=== PATIENT | female | born 1945 | race Caucasian/White ===

== ENCOUNTER → 2016-07-09 | Outpatient (CLI) | payer OTHER ==
--- NOTE | 2016-07-10 06:42 | REP ---
Clinical: Right hip pain. Technique: AP and frog lateral views of the right hip. Findings: Age-related degenerative changes include joint space narrowing as well as subtle cortical irregularity and spurring predominantly involving the greater trochanter. No acute fracture or dislocation. No periarticular calcifications are identified. Surrounding soft tissues are unremarkable. Impression: Mild age-related degenerative changes. Signed by Ronal Choi MD 07/10/2016 06:34 A
== END ==
LOC: M ADAMS 15:56
PROVIDERS: ATTEND Physician Assistant
DX: M16.11 Unilateral primary osteoarthritis, right hip (principal)

== ENCOUNTER → 2016-07-17 | Outpatient (CLI) | payer OTHER ==
--- NOTE | 2016-07-17 20:20 | REP ---
Lumbar spine series: Six views. History: Low back pain. Findings: Lumbar vertebral body heights are preserved. There is advanced diffuse degenerative disc disease with narrowing, endplate sclerosis, anterior and some posterior osteophytic ridging, and vacuum phenomenon at all of the visualized lumbar and lower thoracic disc levels. No fracture or collapse is seen. No spondylolysis or spondylolisthesis is seen. There is osteoarthritic facet narrowing, hypertrophy and sclerosis at L5-S1 and L4-5 bilaterally. This is more prominent on the left. There is a levoconvex mid lumbar scoliosis. Psoas margins are symmetric. Sacrum and SI joints are intact. No bony destructive lesion is seen. Impression: Advanced diffuse degenerative disc disease. Mild levoconvex scoliosis. Osteoarthritic facet changes at L4-5 and L5- S1. Signed by Leo Parekh MD 07/18/2016 09:04 A
== END ==
LOC: M ADAMS 10:21
PROVIDERS: ATTEND Physician Assistant Medical
DX: M51.36 Other intervertebral disc degeneration, lumbar region (principal); M51.37 Other intervertebral disc degeneration, lumbosacral region; M41.9 Scoliosis, unspecified

== ENCOUNTER → 2016-07-18 | Outpatient (REF) | payer OTHER ==
[2016-07-18 12:30] LABS: BASO # 0.1 K/mm3 (0.0-0.2); BASO % 0.7 % (0.0-1.0); EOS # 0.3 K/mm3 (0.0-0.50); EOS % 3.7 % (0.0-3.0); LARGE UNSTAINED CELL # 0.3 K/mm3 (0.0-0.4); LYMPH # 2.8 K/mm3 (1.5-4.5); LYMPH % 32.9 % (24.0-44.0); MEAN CORPUSCULAR HGB CONC 33.6 g/dl (32.0-36.5); MEAN CORPUSCULAR VOLUME 98.4 fl (80.0-96.0); MONO # 0.8 K/mm3 (0.0-0.8); MONO % 9.5 % (0.0-5.0); NEUTROPHILS # 4.2 K/mm3 (1.8-7.7); NEUTROPHILS % 50.3 % (36.0-66.0); PLATELET COUNT, AUTOMATED 508 k/mm3 (150-450); WHITE BLOOD COUNT 8.4 K/mm3 (4.0-10.0)
[2016-07-18 13:06] LABS: ALBUMIN 3.5 GM/DL (3.2-5.2); ALBUMIN/GLOBULIN RATIO 0.92 (1.00-1.93); ALKALINE PHOSPHATASE 83 U/L (45-117); ALT/SGPT 23 U/L (12-78); ANION GAP 8 MEQ/L (8-16); AST/SGOT 17 U/L (15-37); BILIRUBIN,TOTAL 0.7 MG/DL (0.2-1.0); BLOOD UREA NITROGEN 20 MG/DL (7-18); CALCIUM LEVEL 9.6 MG/DL (8.8-10.2); CARBON DIOXIDE LEVEL 29 MEQ/L (21-32); CHLORIDE LEVEL 101 MEQ/L (98-107); CHOLESTEROL LEVEL 150 MG/DL (<200); CREATININE FOR GFR 0.91 MG/DL (0.55-1.02); FREE T4 1.08 NG/DL (0.76-1.46); GLOMERULAR FILTRATION RATE > 60.0 (>39); GLUCOSE, FASTING 98 MG/DL (83-110); SODIUM LEVEL 138 MEQ/L (136-145); TOTAL PROTEIN 7.3 GM/DL (6.4-8.2); TRIGLYCERIDES LEVEL 163 MG/DL (<150)
== END ==
LOC: M SFHCADAM 08:06
PROVIDERS: ATTEND Physician Assistant Medical
DX: I10 Essential (primary) hypertension (principal); E78.5 Hyperlipidemia, unspecified; Z78.0 Asymptomatic menopausal state

== ENCOUNTER → 2016-10-17 | Outpatient (CLI) | payer OTHER ==
--- NOTE | 2016-10-17 09:00 | REPMRS ---
Patient History The patient states she has not had a clinical breast exam in over a year. Patient is postmenopausal. No known family history of cancer. Benign US guided breast biopsy of the right breast, October 04, 2011. Digital Woman Screen Mammo: October 17, 2016 - Exam #: [id number] Bilateral CC and MLO view(s) were taken. Technologist: Leti Garrison, Technologist Prior study comparison: October 12, 2015, digital woman screen mammo performed at [facility]. October 04, 2014, digital woman screen mammo performed at [facility]. FINDINGS: There are scattered fibroglandular densities. There has been no change in the appearance of the mammogram from the prior studies. There is a mild amount of residual fibroglandular tissue which is fairly symmetric. There is no interval development of dominant mass, architectural distortion, or clustered microcalcification suggestive of malignancy. ASSESSMENT: BI-RADS/ACR category 1 mammogram. Negative. Recommendation Routine screening mammogram in 1 year (for women over age 40). This mammogram was interpreted with the aid of an FDA-approved computer-aided dectection system. Electronically Signed By: Preet Nam MD 10/17/16 0974
== END ==
LOC: M WHC 07:51
PROVIDERS: ATTEND Physician Assistant Medical
DX: Z12.31 Encounter for screening mammogram for malignant neoplasm of breast (principal); Z78.0 Asymptomatic menopausal state; Z92.89 Personal history of other medical treatment

== ENCOUNTER → 2017-01-30 | Outpatient (REF) | payer OTHER ==
[2017-01-30 13:18] LABS: MEAN CORPUSCULAR HEMOGLOBIN 32.2 pg (27.0-33.0); MEAN CORPUSCULAR HGB CONC 33.7 g/dl (32.0-36.5); MEAN CORPUSCULAR VOLUME 95.5 fl (80.0-96.0); PLATELET COUNT, AUTOMATED 411 10^3/uL (150-450); RED CELL DISTRIBUTION WIDTH 13.2 % (11.5-14.5); WHITE BLOOD COUNT 7.4 10^3/uL (4.0-10.0)
[2017-02-01 07:16] LABS: ERYTHROCYTE SEDIMENTATION RATE 17 mm/hr (0-30)
[2017-02-06 00:07] LABS: Lyme Disease IgG/IgM Antibodie <0.91 ISR (0.00-0.90); Lyme Disease IgM Ab Quantitati <0.80 index (0.00-0.79); T PALLIDUM AB (FTA-AB) Non Reactive (Non Reactive)
== END ==
LOC: M LAB REF 12:19
PROVIDERS: ATTEND Ophthalmology
DX: M79.2 Neuralgia and neuritis, unspecified (principal)

== ENCOUNTER → 2017-04-18 | Outpatient (CLI) | payer OTHER | LOC: M ADAMS 10:23 | DX: H20.9 Unspecified iridocyclitis (principal) | CPT/HCPCS: 71046 ==

== ENCOUNTER → 2017-10-07 | Outpatient (REF) | payer OTHER ==
[2017-10-07 12:35] LABS: BASO # 0.1 10^3/uL (0.0-0.2); BASO % 1.8 % (0.0-1.0); EOS # 0.4 10^3/uL (0.0-0.50); EOS % 6.4 % (0.0-3.0); HEMATOCRIT 37.7 % (36.0-47.0); IMMATURE GRANULOCYTE % 0.3 % (0-3.0); LYMPH # 2.4 10^3/uL (1.5-4.5); LYMPH % 35.3 % (24.0-44.0); MEAN CORPUSCULAR HEMOGLOBIN 33.6 pg (27.0-33.0); MEAN CORPUSCULAR HGB CONC 34.5 g/dl (32.0-36.5); MEAN CORPUSCULAR VOLUME 97.4 fl (80.0-96.0); MONO # 0.8 10^3/uL (0.0-0.8); MONO % 12.2 % (0.0-5.0); PLATELET COUNT, AUTOMATED 391 10^3/uL (150-450); RED BLOOD COUNT 3.87 10^6/uL (4.00-5.40); RED CELL DISTRIBUTION WIDTH 13.4 % (11.5-14.5); WHITE BLOOD COUNT 6.7 10^3/uL (4.0-10.0)
[2017-10-07 12:47] LABS: TOTAL 25(OH) VITAMIN D 33.9 NG/ML (30.0-100.0)
[2017-10-07 12:53] LABS: ALBUMIN 3.5 GM/DL (3.2-5.2); ALKALINE PHOSPHATASE 52 U/L (45-117); ALT/SGPT 33 U/L (12-78); ANION GAP 8 MEQ/L (8-16); AST/SGOT 23 U/L (7-37); BILIRUBIN,TOTAL 1.1 MG/DL (0.2-1.0); BLOOD UREA NITROGEN 15 MG/DL (7-18); CALCIUM LEVEL 9.4 MG/DL (8.8-10.2); CARBON DIOXIDE LEVEL 28 MEQ/L (21-32); CHLORIDE LEVEL 105 MEQ/L (98-107); CHOLESTEROL LEVEL 149 MG/DL (<200); CHOLESTEROL RISK RATIO 2.223 (<5); GLOMERULAR FILTRATION RATE 57.7 (>39); GLUCOSE, FASTING 93 MG/DL (70-100); HDL CHOLESTEROL 67 MG/DL (>40); LDL CHOLESTEROL 60.8 MG/DL (<100); NON-HDL-C 82 MG/DL; SODIUM LEVEL 141 MEQ/L (136-145); TRIGLYCERIDES LEVEL 106 MG/DL (<150)
== END ==
LOC: M SFHCADAM 08:32
DX: I10 Essential (primary) hypertension (principal); E78.5 Hyperlipidemia, unspecified; Z79.899 Other long term (current) drug therapy
CPT/HCPCS: 84443

== ENCOUNTER → 2017-10-17 | Outpatient (CLI) | payer OTHER | LOC: M WHC 09:32 | DX: Z12.31 Encounter for screening mammogram for malignant neoplasm of breast (principal); Z92.0 Personal history of contraception; Z00.00 Encounter for general adult medical examination without abnormal findings; I10 Essential (primary) hypertension; E78.5 Hyperlipidemia, unspecified; J30.9 Allergic rhinitis, unspecified; I77.9 Disorder of arteries and arterioles, unspecified; M51.36 Other intervertebral disc degeneration, lumbar region | CPT/HCPCS: 77067 ==

== ENCOUNTER → 2018-10-01 | Outpatient (REF) | payer OTHER ==
[2018-10-01 12:54] LABS: BASO # 0.1 10^3/uL (0.0-0.2); BASO % 1.3 % (0.0-1.0); EOS # 0.3 10^3/uL (0.0-0.50); EOS % 3.3 % (0.0-3.0); HEMATOCRIT 40.1 % (36.0-47.0); HEMOGLOBIN 13.5 g/dl (12.0-15.5); LYMPH # 2.7 10^3/uL (1.5-4.5); LYMPH % 33.8 % (24.0-44.0); MEAN CORPUSCULAR HEMOGLOBIN 32.6 pg (27.0-33.0); MEAN CORPUSCULAR HGB CONC 33.7 g/dl (32.0-36.5); MEAN CORPUSCULAR VOLUME 96.9 fl (80.0-96.0); NEUTROPHILS # 3.9 10^3/uL (1.8-7.7); NEUTROPHILS % 48.2 % (36.0-66.0); PLATELET COUNT, AUTOMATED 431 10^3/uL (150-450); RED BLOOD COUNT 4.14 10^6/uL (4.00-5.40)
[2018-10-01 13:05] LABS: ALBUMIN 3.7 GM/DL (3.2-5.2); BILIRUBIN,TOTAL 1.1 MG/DL (0.2-1.0); CHOLESTEROL RISK RATIO 2.263 (<5); CREATININE FOR GFR 1.08 MG/DL (0.55-1.30); GLOMERULAR FILTRATION RATE 52.7 (>39); POTASSIUM SERUM 4.9 MEQ/L (3.5-5.1); THYROID STIMULATING HORMONE 4.53 uIU/ML (0.358-3.740); TOTAL 25(OH) VITAMIN D 32.4 NG/ML (30.0-100.0); TOTAL PROTEIN 7.3 GM/DL (6.4-8.2)
== END ==
LOC: M SFHCADAM 08:17
PROVIDERS: ATTEND Physician Assistant Medical
DX: Z00.00 Encounter for general adult medical examination without abnormal findings (principal); I10 Essential (primary) hypertension; E78.5 Hyperlipidemia, unspecified; I77.9 Disorder of arteries and arterioles, unspecified

== ENCOUNTER → 2018-11-11 | Outpatient (REF) | payer OTHER | LOC: M SFHCADAM 09:20 | PROVIDERS: ATTEND Physician Assistant Medical | DX: E03.9 Hypothyroidism, unspecified (principal) ==

== ENCOUNTER → 2018-11-25 | Outpatient (CLI) | payer MEDICARE ==
--- NOTE | 2018-11-25 23:29 | REPMRS ---
Patient History The patient states she has not had a clinical breast exam in over a year. Patient is postmenopausal. No known family history of cancer. Benign US guided breast biopsy of the right breast, October 04, 2011. No Hormone Replacement Therapy 3D TOMOSYNTHESIS WAS PERFORMED. The [facility] lifetime risk for breast cancer is 3.3%. Digital Woman Screen Mammo: November 25, 2018 - Exam #: [id number] Bilateral CC and MLO view(s) were taken. Technologist: Tanisha Quintanilla, Technologist Prior study comparison: October 17, 2017, bilateral digital woman screen mammo performed at [facility]. October 17, 2016, digital woman screen mammo performed at [facility]. FINDINGS: There are scattered fibroglandular densities. There has been no change in the appearance of the mammogram from the prior studies. There is a mild amount of residual fibroglandular tissue which is fairly symmetric. There is no interval development of dominant mass, architectural distortion, or clustered microcalcification suggestive of malignancy. Assessment: BI-RADS/ACR category 1 mammogram. Negative Mammogram. Recommendation Routine screening mammogram in 1 year (for women over age 40). This mammogram was interpreted with the aid of an FDA-approved computer-aided dectection system. Electronically Signed By: Preet Nam MD 11/25/18 1024
== END ==
LOC: M WHC 09:40
PROVIDERS: ATTEND Physician Assistant Medical
DX: Z12.31 Encounter for screening mammogram for malignant neoplasm of breast (principal); Z78.0 Asymptomatic menopausal state; Z86.018 Personal history of other benign neoplasm
CPT/HCPCS: 77063; 77067; G0463

== ENCOUNTER → 2019-05-04 | Outpatient (REF) | payer MEDICARE, OTHER | LOC: M SFHCADAM 15:46 | PROVIDERS: ATTEND Physician Assistant Medical | DX: E03.9 Hypothyroidism, unspecified (principal) ==

== ENCOUNTER → 2019-11-03 | Outpatient (REF) | payer MEDICARE, OTHER ==
[2019-11-03 16:28] LABS: BASO # 0.1 10^3/uL (0.0-0.2); BASO % 1.1 % (0.0-1.0); EOS # 0.2 10^3/uL (0.0-0.5); EOS % 2.4 % (0.0-3.0); HEMATOCRIT 37.1 % (36.0-47.0); HEMOGLOBIN 12.5 g/dl (12.0-15.5); LYMPH % 33.1 % (24.0-44.0); MEAN CORPUSCULAR HEMOGLOBIN 35.3 pg (27.0-33.0); MEAN CORPUSCULAR HGB CONC 33.7 g/dl (32.0-36.5); MEAN CORPUSCULAR VOLUME 104.8 fl (80.0-96.0); MONO % 11.5 % (0.0-5.0); NEUTROPHILS # 4.6 10^3/uL (1.5-8.5); NEUTROPHILS % 51.7 % (36.0-66.0); PLATELET COUNT, AUTOMATED 532 10^3/uL (150-450); RED BLOOD COUNT 3.54 10^6/uL (4.00-5.40); WHITE BLOOD COUNT 8.9 10^3/uL (4.0-10.0)
[2019-11-03 16:42] LABS: ALBUMIN 3.7 GM/DL (3.2-5.2); BILIRUBIN,TOTAL 0.9 MG/DL (0.2-1.0); CALCIUM LEVEL 10.1 MG/DL (8.8-10.2); CHOLESTEROL RISK RATIO 2.47 (<5); CREATININE FOR GFR 1.05 MG/DL (0.55-1.30); GLOMERULAR FILTRATION RATE 54.2 (>39); POTASSIUM SERUM 5.5 MEQ/L (3.5-5.1); THYROID STIMULATING HORMONE 1.77 uIU/ML (0.358-3.740); TOTAL PROTEIN 7.4 GM/DL (6.4-8.2)
== END ==
LOC: M LABDRWAD 10:08
PROVIDERS: ATTEND Physician Assistant Medical
DX: E78.5 Hyperlipidemia, unspecified (principal); I10 Essential (primary) hypertension; E03.9 Hypothyroidism, unspecified

== ENCOUNTER → 2019-11-12 | Outpatient (REF) | payer MEDICARE, OTHER ==
[2019-11-12 15:46] LABS: CALCIUM LEVEL 10.2 MG/DL (8.8-10.2); CREATININE FOR GFR 1.14 MG/DL (0.55-1.30); GLOMERULAR FILTRATION RATE 49.3 (>39)
== END ==
LOC: M LABDRWAD 09:35
PROVIDERS: ATTEND Physician Assistant Medical
DX: E87.5 Hyperkalemia (principal)

== ENCOUNTER → 2020-08-15 | Outpatient (CLI) | payer OTHER, MEDICARE ==
--- NOTE | 2020-08-16 07:29 | REP ---
INDICATION: ACUTE MIDLINE THORACIC BACK PAIN COMPARISON: None. TECHNIQUE: AP, lateral, and swimmers views. FINDINGS: Alignment and kyphosis maintained. Age-related osteopenia and moderate/early advanced multilevel degenerative changes include endplate sclerosis, disc space narrowing/obliteration, and osteophytosis. No acute fracture/compression injury or subluxation. IMPRESSION: Moderate/early advanced multilevel degenerative changes. <Electronically signed by Ronal Choi > 08/16/20 [id number]
== END ==
LOC: M ADAMS 11:29
PROVIDERS: ATTEND Physician Assistant Medical
DX: M54.6 Pain in thoracic spine (principal)

== ENCOUNTER 2020-09-07 20:03 | Emergency (ER) | payer MEDICARE ==
[~2020-09-07] VITALS: Ht 162.6 cm; Wt 69.1 kg
[2020-09-07] MEDS ORDERED: ISOVUE-370 76% 100ML VIAL As Ordered ONE (20:52)
[2020-09-07 20:59] LABS: BASO # 0.1 10^3/uL (0.0-0.2); BASO % 1.3 % (0.0-1.0); EOS # 0.2 10^3/uL (0.0-0.5); EOS % 1.8 % (0.0-3.0); HEMOGLOBIN 11.4 g/dl (12.0-15.5); LYMPH # 1.3 10^3/uL (1.5-5.0); LYMPH % 14.3 % (24.0-44.0); MEAN CORPUSCULAR HEMOGLOBIN 33.6 pg (27.0-33.0); MEAN CORPUSCULAR HGB CONC 33.5 g/dl (32.0-36.5); MEAN CORPUSCULAR VOLUME 100.3 fl (80.0-96.0); MONO # 1.2 10^3/uL (0.0-0.8); MONO % 13.1 % (2.0-8.0); NEUTROPHILS # 6.5 10^3/uL (1.5-8.5); NEUTROPHILS % 69.1 % (36.0-66.0); PLATELET COUNT, AUTOMATED 491 10^3/uL (150-450); RED BLOOD COUNT 3.39 10^6/uL (4.00-5.40); WHITE BLOOD COUNT 9.3 10^3/uL (4.0-10.0)
[2020-09-07] MEDS ORDERED: NS 1,000 ML IV ONE (21:00)
[2020-09-07 21:09] LABS: INR 0.92; PROTHROMBIN TIME 12.6 SECONDS (12.5-14.3)
[2020-09-07 21:35] LABS: ALT/SGPT 33 U/L (12-78); BILIRUBIN,DIRECT 0.2 MG/DL (0.0-0.2); BILIRUBIN,TOTAL 0.5 MG/DL (0.2-1.0); BLOOD UREA NITROGEN 18 MG/DL (7-18); CALCIUM LEVEL 9.4 MG/DL (8.8-10.2); CARBON DIOXIDE LEVEL 27 MEQ/L (21-32); CHLORIDE LEVEL 98 MEQ/L (98-107); CK-MB VALUE MASS < 1.0 NG/ML (<3.6); CPK CREATINE PHOSPHOKINASE 46 U/L (26-192); CREATININE FOR GFR 1.27 MG/DL (0.55-1.30); GLOMERULAR FILTRATION RATE 43.4 (>39); GLUCOSE, FASTING 135 MG/DL (70-100); LIPASE 174 U/L (73-393); MB/CK RELATIVE INDEX 2.17 (< OR =4); POTASSIUM SERUM 4.1 MEQ/L (3.5-5.1); SODIUM LEVEL 131 MEQ/L (136-145); TOTAL PROTEIN 7.9 GM/DL (6.4-8.2); TROPONIN I < 0.02 NG/ML (< 0.10)
--- NOTE | 2020-09-07 21:47 | REPVR ---
PROCEDURE INFORMATION: Exam: CTA Chest With Contrast Exam date and time: 09/07/2020 9:00 PM Age: 75 years old Clinical indication: Chest wall pain; Additional info: Chest wall pain, tachycardia, ddimer TECHNIQUE: Imaging protocol: Computed tomographic angiography of the chest with contrast. 3D rendering (Not supervised by radiologist): MIP and/or 3D reconstructed images were created by the technologist. Radiation optimization: All CT scans at this facility use at least one of these dose optimization techniques: automated exposure control; mA and/or kV adjustment per patient size (includes targeted exams where dose is matched to clinical indication); or iterative reconstruction. Contrast material: ISOVUE 370; Contrast volume: 75 ml; Contrast route: INTRAVENOUS (IV); COMPARISON: DX CHEST 2 VIEW 09/07/2020 3:00 PM FINDINGS: Pulmonary arteries: There are no pulmonary emboli. There is enlargement of the central pulmonary arteries, findings which can be associated with pulmonary arterial hypertension which should be correlated clinically. Aorta: There is mild atherosclerosis in the thoracic aorta. There is no aortic dissection or aneurysm. Great vessels off aortic arch: Mild atherosclerotic changes at the origin of the left subclavian artery without significant stenosis. Other arteries: Mild atherosclerotic changes in the right brachiocephalic artery without significant stenosis. Lungs: Bibasilar atelectasis. Lungs otherwise clear. Pleural spaces: Unremarkable. No pneumothorax. No pleural effusion. Heart: Unremarkable. No cardiomegaly. No pericardial effusion. Mediastinal space: A moderate hiatal hernia is present. Lymph nodes: Small mediastinal lymph nodes likely postinflammatory. Bones/joints: The spine demonstrates mild degenerative changes. Degenerative changes in the left glenohumeral joint. Soft tissues: Unremarkable. IMPRESSION: 1. A moderate hiatal hernia is present. 2. There is no aortic dissection or aneurysm. 3. There are no pulmonary emboli. 4. There is enlargement of the central pulmonary arteries, findings which can be associated with pulmonary arterial hypertension which should be correlated clinically. 5. No acute pulmonary parenchymal abnormalities. Electronically signed by: Clarence Barrera On 09/07/2020 21:47:38 PM
--- NOTE | 2020-09-07 23:03 | REPVR ---
PROCEDURE INFORMATION: Exam: US Duplex Lower Extremity Veins, Bilateral Exam date and time: 09/07/2020 10:03 PM Age: 75 years old Clinical indication: Pain; Leg, lower; Bilateral; Additional info: Chest pain/sob, tachycardia, ddimer TECHNIQUE: Imaging protocol: Real-time duplex ultrasound of the extremities with 2-D begum scale, color Doppler flow and spectral waveform analysis with image documentation. Complete exam focused on the bilateral lower extremity veins. COMPARISON: No relevant prior studies available. FINDINGS: Right deep veins: Common femoral, femoral, proximal profunda femoral and popliteal veins are patent without thrombus. Normal Doppler waveforms. Normal compressibility and/or augmentation response. Right superficial veins: Saphenofemoral junction is patent without thrombus. Left deep veins: Common femoral, femoral, proximal profunda femoral and popliteal veins are patent without thrombus. Normal Doppler waveforms. Normal compressibility and/or augmentation response. Left superficial veins: Saphenofemoral junction is patent without thrombus. Soft tissues: No abnormal focal fluid collection. IMPRESSION: No evidence of deep vein thrombosis. Electronically signed by: Hill Alejandra On 09/07/2020 23:03:07 PM
[2020-09-07] MEDS ORDERED: amLODIPine 5 MG TAB PO ONE (23:25)
[2020-09-07] MEDS ORDERED: LABETALOL 100MG TAB PO ONE (23:30)
[2020-09-07] MEDS ORDERED: LEVO25TA5 (23:57)
[2020-09-07] MEDS ORDERED: MELO15TA28 (23:57)
[2020-09-07] MEDS ORDERED: REST0.05 (23:57)
[2020-09-07] MEDS ORDERED: ATOR40TA75 (23:57)
[2020-09-07] MEDS ORDERED: PREDOPD (23:57)
[2020-09-07] MEDS ORDERED: OLOP2.5D7 (23:57)
[2020-09-07] MEDS ORDERED: FLUTISP (23:57)
[2020-09-07] MEDS ORDERED: LISI20TA33 (23:57)
[2020-09-07] MEDS ORDERED: VALA1TAB5 (23:57)
[2020-09-07] MEDS ORDERED: OMEP-221 (23:57)
[2020-09-07 23:58] VITALS: BP 154/74
--- NOTE | 2020-09-09 08:19 | ED PDOC ---
Post-Departure Follow-Up radiology repo rtfaxed to lon chris Sarah MD Sep 09, 2020 08:19
--- NOTE | 2020-09-09 16:11 | ECGEPIP ---
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
[2020-09-27] MEDS ORDERED: SUPE600T4 PO (13:20)
[2020-09-27] MEDS ORDERED: NOXI1TAB PO (13:20)
[2020-09-27] MEDS ORDERED: [UNRECOGNIZED DRUG - CODE] PO (13:20)
[2020-09-27] MEDS ORDERED: TURM500C PO (13:20)
[2020-09-27] MEDS ORDERED: ASPI1CHW3 PO (13:20)
[2020-09-27] MEDS ORDERED: COVI100V IM (13:20)
[2020-09-27] MEDS ORDERED: VITA-259 PO (13:20)
== END 2020-09-08 00:22 | disposition home or self-care (01) ==
LOC: M ED 20:03
DX: I10 Essential (primary) hypertension (principal); E78.5 Hyperlipidemia, unspecified; Z79.899 Other long term (current) drug therapy; Z79.890 Hormone replacement therapy
CPT/HCPCS: 71046; 71275; 80053; 80061; 82550; 82553; 82607; 82728; 82746; 83550; 83690; 83883; 84439; 84443; 84484; 85025; 85379; 85610; 85652; 85730; 86140; 93005; 93041; 93970; 94760; 96360; 96361; 99284; G0463; Q9967

== ENCOUNTER → 2020-09-07 | Outpatient (CLI) | payer MEDICARE ==
[~2020-09-07] MED LIST: ATOR40TA75; FLUTISP; LEVO25TA5; LISI20TA33; MELO15TA28; OLOP2.5D7; OMEP-221; PREDOPD; REST0.05; VALA1TAB5
--- NOTE | 2020-09-07 15:40 | REP ---
INDICATION: PLEURITIC CHEST PAIN COMPARISON: 04/18/2017 TECHNIQUE: PA and lateral. FINDINGS: The cardiac silhouette is normal. The bilateral komal are within normal limits. Hiatal hernia is suspected. The lung servin demonstrate bibasilar platelike atelectasis. No effusion or pneumothorax. Skeletal structures demonstrate degenerative changes to the thoracic spine and old healed right clavicle fracture. IMPRESSION: Mild to moderate bibasilar platelike atelectasis. <Electronically signed by Ronal Choi > 09/07/20 1532
== END ==
LOC: M ADAMS 15:17
PROVIDERS: ATTEND Physician Assistant
DX: J98.11 Atelectasis (principal); R07.81 Pleurodynia

== ENCOUNTER → 2020-09-07 | Outpatient (REF) | payer MEDICARE ==
[2020-09-07 16:49] LABS: BASO # 0.1 10^3/uL (0.0-0.2); EOS # 0.2 10^3/uL (0.0-0.5); EOS % 2.4 % (0.0-3.0); HEMATOCRIT 35.9 % (36.0-47.0); HEMOGLOBIN 11.8 g/dl (12.0-15.5); LYMPH # 2.1 10^3/uL (1.5-5.0); LYMPH % 20.6 % (24.0-44.0); MEAN CORPUSCULAR HEMOGLOBIN 33.1 pg (27.0-33.0); MEAN CORPUSCULAR HGB CONC 32.9 g/dl (32.0-36.5); MEAN CORPUSCULAR VOLUME 100.8 fl (80.0-96.0); MONO # 1.4 10^3/uL (0.0-0.8); MONO % 13.3 % (2.0-8.0); NEUTROPHILS # 6.3 10^3/uL (1.5-8.5); NEUTROPHILS % 62.3 % (36.0-66.0); PLATELET COUNT, AUTOMATED 517 10^3/uL (150-450); RED BLOOD COUNT 3.56 10^6/uL (4.00-5.40); WHITE BLOOD COUNT 10.1 10^3/uL (4.0-10.0)
[2020-09-07 17:25] LABS: ALBUMIN 2.9 GM/DL (3.2-5.2); ALT/SGPT 35 U/L (12-78); BILIRUBIN,TOTAL 0.6 MG/DL (0.2-1.0); BLOOD UREA NITROGEN 19 MG/DL (7-18); C REACTIVE PROTEIN QUANTITATIV 6.58 MG/DL (0.00-0.30); CARBON DIOXIDE LEVEL 26 MEQ/L (21-32); CHLORIDE LEVEL 99 MEQ/L (98-107); CHOLESTEROL LEVEL 168 MG/DL (<200); CHOLESTEROL RISK RATIO 2.301 (<5); CREATININE FOR GFR 1.28 MG/DL (0.55-1.30); ERYTHROCYTE SEDIMENTATION RATE 103 mm/hr (0-30); FERRITIN 315 NG/ML (8-252); FOLATE > 24.0 NG/ML; FREE T4 1.29 NG/DL (0.76-1.46); GLUCOSE, FASTING 92 MG/DL (70-100); HDL CHOLESTEROL 73 MG/DL (>40); IRON (FE) 34 UG/DL (50-170); LDL CHOLESTEROL 71 MG/DL (<100); NON-HDL-C 95 MG/DL; PERCENT SATURATION 13.2 % (13.2-45.0); POTASSIUM SERUM 5.7 MEQ/L (3.5-5.1); SODIUM LEVEL 134 MEQ/L (136-145); TOTAL IRON BINDING CAPACITY 257 UG/DL (250-450); TOTAL PROTEIN 8.1 GM/DL (6.4-8.2); TRIGLYCERIDES LEVEL 122 MG/DL (<150); VITAMIN B12 LEVEL > 2000 PG/ML
[2020-09-09 17:08] LABS: FREE KAPPA LIGHT CHAINS SERUM 62.2 mg/L (3.3-19.4); FREE LAMBDA LIGHT CHAINS SERUM 62.6 mg/L (5.7-26.3); KAPPA/LAMBDA RATIO SERUM 0.99 (0.26-1.65)
== END ==
LOC: M SFHCADAM 15:13
PROVIDERS: ATTEND Physician Assistant
DX: R53.82 Chronic fatigue, unspecified (principal); D75.89 Other specified diseases of blood and blood-forming organs; E03.9 Hypothyroidism, unspecified; E78.5 Hyperlipidemia, unspecified; R63.4 Abnormal weight loss; R07.81 Pleurodynia

== ENCOUNTER → 2020-09-12 | Outpatient (REF) | payer MEDICARE ==
[2020-09-12 17:22] LABS: HEMATOCRIT 34.6 % (36.0-47.0); HEMOGLOBIN 11.3 g/dl (12.0-15.5); MEAN CORPUSCULAR HEMOGLOBIN 33.7 pg (27.0-33.0); MEAN CORPUSCULAR HGB CONC 32.7 g/dl (32.0-36.5); MEAN CORPUSCULAR VOLUME 103.3 fl (80.0-96.0); PLATELET COUNT, AUTOMATED 562 10^3/uL (150-450); RED BLOOD COUNT 3.35 10^6/uL (4.00-5.40); WHITE BLOOD COUNT 10.3 10^3/uL (4.0-10.0)
[2020-09-12 17:43] LABS: C REACTIVE PROTEIN QUANTITATIV 0.77 MG/DL (0.00-0.30); TOTAL PROTEIN 7.6 GM/DL (6.4-8.2)
[2020-09-12 17:51] LABS: ERYTHROCYTE SEDIMENTATION RATE 105 mm/hr (0-30)
[2020-09-13 14:20] LABS: ALBUMIN 3.34 GM/DL (3.29-5.55); ALPHA-1-GLOBULIN % 5.3 % (2.9-4.9); ALPHA-2-GLOBULINS 1.31 GM/DL (0.42-0.99); ALPHA-2-GLOBULINS % 17.3 % (7.1-11.8); BETA-1-GLOBULINS 0.43 GM/DL (0.28-0.60); BETA-1-GLOBULINS % 5.6 % (4.7-7.2); BETA-2-GLOBULINS 0.45 GM/DL (0.19-0.55); BETA-2-GLOBULINS % 5.9 % (3.2-6.5); GAMMA GLOBULIN % 21.9 % (11.1-18.8); GAMMA GLOBULINS 1.66 GM/DL (0.65-1.58)
[2020-09-14 17:09] LABS: FREE KAPPA LIGHT CHAINS SERUM 45.4 mg/L (3.3-19.4); FREE LAMBDA LIGHT CHAINS SERUM 52.6 mg/L (5.7-26.3); KAPPA/LAMBDA RATIO SERUM 0.86 (0.26-1.65)
== END ==
LOC: M SFHCADAM 14:13
PROVIDERS: ATTEND Physician Assistant
DX: R70.0 Elevated erythrocyte sedimentation rate (principal); D53.9 Nutritional anemia, unspecified

== ENCOUNTER → 2020-10-12 | Outpatient (CLI) | payer MEDICARE ==
[~2020-10-12] MED LIST changes: +ASPI1CHW3 PO; +COVI100V IM; +NOXI1TAB PO; +SUPE600T4 PO; +TURM500C PO; +VITA-259 PO; +[UNRECOGNIZED DRUG - CODE] PO
--- NOTE | 2020-10-12 10:47 | REP ---
INDICATION: Carotid artery disease TECHNIQUE: Carotid ultrasonography was performed bilaterally FINDINGS: Right: CCA systolic: 124 centimeters/second CCA diastolic: 18.0 centimeters/second ICA systolic: 106.0 centimeters/second ICA diastolic: 28.0 centimeters/second ICA CCA ratio: 0.85 Left: CCA systolic: 109 centimeters/second CCA diastolic: 20.1 centimeters/second ICA systolic: 92.1 centimeters/second ICA diastolic: 22.0 centimeters/second ICA CCA ratio: 0.84 Vertebral artery: Right: Antegrade flow left: Antegrade flow A moderate amount of echogenic material seen along the carotid arterial floyd some of which casts and acoustic shadow. IMPRESSION: According to the SRU criteria there is less than 50% stenosis of the internal carotid artery bilaterally. This is secondary to both calcified and noncalcified are thrombus plaque formation. When scanning the carotid arteries the technologist noted multiple thyroid nodules. Consider follow-up with thyroid ultrasonography. <Electronically signed by Collins Garcia > 10/12/20 [id number]
== END ==
LOC: M RAD 09:58
PROVIDERS: ATTEND Physician Assistant Medical
DX: I77.9 Disorder of arteries and arterioles, unspecified (principal); E04.1 Nontoxic single thyroid nodule; R09.89 Other specified symptoms and signs involving the circulatory and respiratory systems

== ENCOUNTER → 2020-11-01 | Outpatient (CLI) | payer MEDICARE ==
--- NOTE | 2020-11-01 13:51 | REPMRS ---
Patient History The patient states she has not had a clinical breast exam in over a year. No known family history of cancer. Benign US guided breast biopsy of the right breast, October 04, 2011. No Hormone Replacement Therapy Patient states no breast complaints today. Patient has signed MRS History Sheet. Digital Woman Screen Mammo: November 01, 2020 - Exam #: [id number] Bilateral CC and MLO view(s) were taken. Technologist: Leti Garrison, Technologist Prior study comparison: November 25, 2018, bilateral digital woman screen mammo performed at [facility]. October 17, 2017, bilateral digital woman screen mammo performed at [facility]. October 17, 2016, digital woman screen mammo performed at [facility]. FINDINGS: There are scattered fibroglandular densities. The Volpara volumetric breast density category is:B. There is a needle biopsy marker clip noted in the right breast. There has been no change in the appearance of the mammogram from the prior studies. There is a mild amount of scattered fibroglandular density which is fairly symmetric. There is no interval development of dominant mass, architectural distortion, or grouped microcalcification suggestive of malignancy. 3-D tomosynthesis shows no additional findings. Assessment: BI-RADS/ACR category 2 mammogram. Benign Findings. Recommendation Routine screening mammogram of both breasts in 1 year (for women over age 40). This patient's [facility] Lifetime Breast Cancer Risk is estimated at 2.7 %. This mammogram was interpreted with the aid of an FDA-approved computer-aided dectection system. Electronically Signed By: Abdirahman Parekh MD 11/01/20 0515
--- NOTE | 2020-11-01 13:52 | DEXAMM ---
INDICATION: Z78.0/MENOPAUSAL. COMPARISON: Comparison study October 12, 2015. TECHNIQUE: Bone density was measured using dual-energy x-ray absorptionmetry (DEXA). FINDINGS: AP SPINE L1-L4 BMD 1.567 g/cm2 Young Adult T-Score 3.0 Age Matched Z-Score 4.8. LT FEMUR, TOTAL BMD 0.718 g/cm2 Young Adult T-Score -2.3 Age Matched Z-Score 8-0.4. LT NECK BMD 0.662 g/cm2 Young Adult T-Score -2.7 Age Matched Z-Score -0.7. RT FEMUR, TOTAL BMD 0.663 g/cm2 Young Adult T-Score -2.7 Age Matched Z-Score -0.9. RT NECK BMD 0.683 g/cm2 Young Adult T-Score -2.6 Age Matched Z-Score -0.5. IMPRESSION: There is normal bone density of the spine. There is osteoporosis of the left hip. There is is osteoporosis of the right hip. The density of the spine has increased 5.1% since the initial exam on August 22, 2011. The density of the spine increased 1.8% since most recent exam on October 12, 2015. The density of the left hip has decreased 7.7% since initial exam on August 22, 2011. The density of the left hip has decreased 8.4% since most recent exam on October 12, 2015. The density of the right hip has decreased 13.1% since the initial exam on the August 21, 2001 a. The density of the right hip has decreased 14.3% since the most recent exam on October 12, 2015. FOLLOW-UP: Recommendation for the next bone density exam: 2 years. <Electronically signed by Abdirahman Parekh > 11/01/20 9167
== END ==
LOC: M WHC 12:47
PROVIDERS: ATTEND Physician Assistant Medical
DX: Z12.31 Encounter for screening mammogram for malignant neoplasm of breast (principal); Z78.0 Asymptomatic menopausal state; Z86.018 Personal history of other benign neoplasm

== ENCOUNTER → 2020-11-03 | Outpatient (CLI) | payer MEDICARE ==
--- NOTE | 2020-11-04 06:41 | REP ---
INDICATION: THYROID NODULES COMPARISON: None. TECHNIQUE: Nam scale and color evaluation of the thyroid gland using the linear high frequency transducer. FINDINGS: The thyroid gland is normal in contour, shape, size, and overall parenchymal echogenicity. Right thyroid lobe measures 3.9 x 1.4 x 1.7 cm without nodule or cyst. Isthmus measures 1.7 mm in width. Left thyroid lobe measures 3.4 x 1.5 x 1.6 cm with 4 x 2 x 3 mm midpole complex cyst, 10 x 6 x 6 mm simple cyst and 3 x 2 x 3 mm lower pole hypoechoic nodule. IMPRESSION: Left-sided nodules/cysts relatively nonspecific. No single lesion meets TI-RADS criteria for biopsy. Consider annual follow-up if necessary. <Electronically signed by Ronal Choi > 11/04/20 0637
== END ==
LOC: M RAD 13:46
PROVIDERS: ATTEND Physician Assistant Medical
DX: E04.1 Nontoxic single thyroid nodule (principal)

== ENCOUNTER → 2020-11-15 | Outpatient (REF) | payer MEDICARE ==
[~2020-11-15] MED LIST changes: +FOSA70TA PO; +VITA-297 PO
[2020-11-15 18:26] LABS: BASO # 0.1 10^3/uL (0.0-0.2); BASO % 1.4 % (0.0-1.0); EOS # 0.3 10^3/uL (0.0-0.5); EOS % 3.4 % (0.0-3.0); HEMATOCRIT 35.4 % (36.0-47.0); HEMOGLOBIN 11.5 g/dl (12.0-15.5); LYMPH % 30.9 % (24.0-44.0); MEAN CORPUSCULAR HGB CONC 32.5 g/dl (32.0-36.5); MEAN CORPUSCULAR VOLUME 101.4 fl (80.0-96.0); MONO # 1.2 10^3/uL (0.0-0.8); MONO % 12.2 % (2.0-8.0); NEUTROPHILS % 51.5 % (36.0-66.0); PLATELET COUNT, AUTOMATED 607 10^3/uL (150-450); RED BLOOD COUNT 3.49 10^6/uL (4.00-5.40); WHITE BLOOD COUNT 9.7 10^3/uL (4.0-10.0)
[2020-11-15 19:19] LABS: TOTAL PROTEIN 7.2 GM/DL (6.4-8.2)
[2020-11-15 19:27] LABS: VITAMIN B12 LEVEL 1548 PG/ML
[2020-11-15 19:28] LABS: FOLATE > 24.0 NG/ML
[2020-11-16 11:26] LABS: ALBUMIN 3.74 GM/DL (3.29-5.55); ALPHA-1-GLOBULIN % 4.1 % (2.9-4.9); ALPHA-2-GLOBULINS 1.05 GM/DL (0.42-0.99); ALPHA-2-GLOBULINS % 14.6 % (7.1-11.8); BETA-1-GLOBULINS 0.43 GM/DL (0.28-0.60); BETA-2-GLOBULINS 0.33 GM/DL (0.19-0.55); BETA-2-GLOBULINS % 4.6 % (3.2-6.5); GAMMA GLOBULIN % 18.7 % (11.1-18.8); GAMMA GLOBULINS 1.35 GM/DL (0.65-1.58)
[2020-11-17 19:49] LABS: FREE KAPPA LIGHT CHAINS SERUM 29.5 mg/L (3.3-19.4); FREE LAMBDA LIGHT CHAINS SERUM 47.5 mg/L (5.7-26.3); KAPPA/LAMBDA RATIO SERUM 0.62 (0.26-1.65)
== END ==
LOC: M LABDRWAD 17:57
PROVIDERS: ATTEND Internal Medicine
DX: D75.89 Other specified diseases of blood and blood-forming organs (principal)

== ENCOUNTER 2020-12-12 08:57 | Emergency (ER) | payer MEDICARE ==
[~2020-12-12 08:57] MED LIST changes: -AMLO10TA PO; -SULF1TAB23 PO
[2020-12-12 10:34] LABS: BASO # 0.1 10^3/uL (0.0-0.2); EOS # 0.2 10^3/uL (0.0-0.5); EOS % 2.4 % (0.0-3.0); HEMATOCRIT 37.7 % (36.0-47.0); HEMOGLOBIN 12.6 g/dl (12.0-15.5); LYMPH # 1.2 10^3/uL (1.5-5.0); LYMPH % 15.5 % (24.0-44.0); MEAN CORPUSCULAR HEMOGLOBIN 33.5 pg (27.0-33.0); MEAN CORPUSCULAR HGB CONC 33.4 g/dl (32.0-36.5); MEAN CORPUSCULAR VOLUME 100.3 fl (80.0-96.0); MONO # 1.2 10^3/uL (0.0-0.8); MONO % 15.7 % (2.0-8.0); NEUTROPHILS % 65.1 % (36.0-66.0); PLATELET COUNT, AUTOMATED 439 10^3/uL (150-450); RED BLOOD COUNT 3.76 10^6/uL (4.00-5.40); WHITE BLOOD COUNT 7.6 10^3/uL (4.0-10.0)
[2020-12-12 10:49] LABS: CALCIUM LEVEL 9.7 MG/DL (8.8-10.2); CREATININE FOR GFR 1.12 MG/DL (0.55-1.30); GLOMERULAR FILTRATION RATE 50.2 (>39); POTASSIUM SERUM 4.4 MEQ/L (3.5-5.1)
[2020-12-12] MEDS ORDERED: LABETALOL 100MG/20ML VIAL IV STA ×2 (11:40→13:16)
[2020-12-12] MEDS ORDERED: LORazepam 2 MG/ML VIAL IV STA (12:41)
[2020-12-12 13:41] VITALS: BP 216/98
[2020-12-12] MEDS ORDERED: BACTRIM 160MG/800MG DS TAB PO ONE (14:00)
[2020-12-12] MEDS ORDERED: NS 500 ML IV ONE (14:10)
[2020-12-12 15:15] VITALS: BP 155/73
[2020-12-12] MEDS ORDERED: SULF1TAB23 PO (15:16)
[2020-12-12] MEDS ORDERED: AMLO10TA PO (15:17)
--- NOTE | 2020-12-12 19:20 | ECGEPIP ---
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
== END 2020-12-12 15:40 | disposition home or self-care (01) ==
LOC: M ED 08:57
DX: I10 Essential (primary) hypertension (principal); N39.0 Urinary tract infection, site not specified; E78.9 Disorder of lipoprotein metabolism, unspecified; E07.9 Disorder of thyroid, unspecified; K21.9 Gastro-esophageal reflux disease without esophagitis; M85.9 Disorder of bone density and structure, unspecified; Z79.899 Other long term (current) drug therapy; Z79.82 Long term (current) use of aspirin; Z79.890 Hormone replacement therapy
CPT/HCPCS: 36415; 80048; 81001; 85025; 87088; 87186; 93005; 93041; 94760; 96361; 96374; 96375; 96376; 99285; J2060

== ENCOUNTER → 2020-12-12 | Outpatient (CLI) | payer MEDICARE ==
[~2020-12-12] MED LIST changes: +AMLO10TA PO; +SULF1TAB23 PO
[2020-12-12 08:46] VITALS: BP 240/92
== END ==
LOC: M IRPRO 08:10
PROVIDERS: ATTEND Internal Medicine Hematology & Oncology
DX: D64.9 Anemia, unspecified (principal); Z53.8 Procedure and treatment not carried out for other reasons

== ENCOUNTER → 2020-12-26 | Outpatient (CLI) | payer MEDICARE ==
[~2020-12-26] MED LIST changes: +ALPR0.25 PO; +AMLO10TA PO; +SULF1TAB23 PO
--- NOTE | 2020-12-27 18:05 | ECHO ---
ECHOCARDIOGRAM DATE OF PROCEDURE: 12/26/2020 Age: 75 Gender: Female Height: 64 inches Weight: 150 pounds Body surface area: 1.73 m2 Outpatient. REFERRING PROVIDER: ROSANGELA Day INDICATION: Abnormal EKG. MEASUREMENTS: 2D Measurements: RV - 3.5 cm LV - 3.8 cm Septum 1.2 cm Posterior wall 1.2 cm Aortic root 2.9 cm LA - 4.0 cm LVEF 75% Doppler Measurements: AV - 2.35 m/s LVOT - 1.11 m/s Mean AV gradient 10 mmHg Dimensionless index 0.5 MV-E 98, A 103, E/A ratio 1.8 Early mitral deceleration time 141 msec E prime medial 6.9 A prime medial 16 E prime lateral 10.6 Average E/E prime ratio 10.3/PCWP - 14.7 mmHg PV - 0.9 cm Pulmonary artery acceleration time 88 msec PASP - 42 mmHg IVC - 1.5 cm COMMENTS: Normal sinus rhythm without intraventricular conduction disturbance. M-mode and 2-dimensional echocardiography was performed with pulse, continuous wave, color flow, and tissue Doppler studies. Borderline concentric left ventricular hypertrophy with hyperkinetic wall motion. Mildly dilated left atrium with grade 1 LV diastolic dysfunction but current estimated mean left atrial pressure upper limits of normal. Normal right heart chamber sizes and motion with Doppler sign of moderate pulmonary hypertension. Normal IVC size and collapse against an elevated central venous pressure. Normal aortic dimensions. Three equal size aortic cusps with moderate cusp thickening and no more than marginal aortic stenosis. Moderate aortic insufficiency with pressure half-time 418 msec. Mild degenerative changes of the mitral valvular apparatus with no inflow tract obstruction and only trace mitral insufficiency. Normal-appearing tricuspid valve with very mild insufficiency. No apparent intracardiac mass or pericardial effusion.
== END ==
LOC: M CARPUL 08:35
PROVIDERS: ATTEND Physician Assistant Medical
DX: R94.31 Abnormal electrocardiogram [ECG] [EKG] (principal); I35.1 Nonrheumatic aortic (valve) insufficiency; I27.20 Pulmonary hypertension, unspecified

== ENCOUNTER → 2021-01-04 | Outpatient (CLI) | payer MEDICARE ==
[~2021-01-04] MED LIST changes: -ATOR40TA75; +ATOR40TA75 PO; -LEVO25TA5; +LEVO25TA5 PO; +LIDOCAINE 1% MDV 20ML VIAL As Ordered ONE; -LISI20TA33; +LISI20TA33 PO; -MELO15TA28; +MELO15TA28 PO; -OLOP2.5D7; +OLOP2.5D7 OU; -OMEP-221; +OMEP-221 PO; -PREDOPD; +PREDOPD OS; -REST0.05; +REST0.05 OU; -VALA1TAB5; +VALA1TAB5 PO
[2021-01-04 09:59] LABS: BASO # 0.1 10^3/uL (0.0-0.2); BASO % 1.4 % (0.0-1.0); EOS # 0.3 10^3/uL (0.0-0.5); EOS % 3.5 % (0.0-3.0); HEMATOCRIT 36.7 % (36.0-47.0); HEMOGLOBIN 12.2 g/dl (12.0-15.5); LYMPH # 2.6 10^3/uL (1.5-5.0); LYMPH % 31.8 % (24.0-44.0); MEAN CORPUSCULAR HEMOGLOBIN 33.2 pg (27.0-33.0); MEAN CORPUSCULAR HGB CONC 33.2 g/dl (32.0-36.5); MONO # 0.9 10^3/uL (0.0-0.8); MONO % 10.9 % (2.0-8.0); NEUTROPHILS # 4.2 10^3/uL (1.5-8.5); NEUTROPHILS % 52.2 % (36.0-66.0); PLATELET COUNT, AUTOMATED 394 10^3/uL (150-450); RED BLOOD COUNT 3.67 10^6/uL (4.00-5.40)
[2021-01-04 10:55] VITALS: BP 157/70
--- NOTE | 2021-01-04 17:27 | REP ---
INDICATION: ANEMIA`. COMPARISON: None. TECHNIQUE: The procedure was procedure performed under the direct supervision of Dr. Nam. The risks and benefits of the procedure were explained to the patient and informed consent was obtained. The right iliac bone was localized using CT guidance. The skin was prepped and draped in a sterile fashion. 5 mL of 1% lidocaine was used as local anesthetic. Using CT guidance an 11 gauge bone marrow biopsy system was inserted. 10 mL of marrow fluid was withdrawn. One core biopsy sample was then obtained. Estimated blood loss: Less than 1 mL The patient tolerated the procedure well and there were no immediate complications. After the appropriate amount to monitored convalescence the patient was discharged from the department. FINDINGS: None IMPRESSION: CT-guided right iliac bone marrow biopsy. <Electronically signed by Zia Agustin > 01/04/21 1067 <Electronically signed by Preet Nam > 01/04/21 [id number]
== END ==
LOC: M IRPRO 09:04
PROVIDERS: ATTEND Internal Medicine Hematology & Oncology
DX: D64.9 Anemia, unspecified (principal)

== ENCOUNTER → 2021-05-05 | Outpatient (REF) | payer MEDICARE ==
[~2021-05-05] MED LIST changes: -LIDOCAINE 1% MDV 20ML VIAL As Ordered ONE; -OMEP-221 PO; +OMEP40CA5 PO
[2021-05-05 13:38] LABS: BASO # 0.1 10^3/uL (0.0-0.2); BASO % 1.3 % (0.0-1.0); EOS # 0.3 10^3/uL (0.0-0.5); EOS % 3.3 % (0.0-3.0); HEMATOCRIT 36.5 % (36.0-47.0); LYMPH # 2.8 10^3/uL (1.5-5.0); LYMPH % 29.5 % (24.0-44.0); MEAN CORPUSCULAR HEMOGLOBIN 33.4 pg (27.0-33.0); MEAN CORPUSCULAR HGB CONC 32.9 g/dl (32.0-36.5); MEAN CORPUSCULAR VOLUME 101.7 fl (80.0-96.0); MONO # 1.1 10^3/uL (0.0-0.8); MONO % 11.4 % (2.0-8.0); NEUTROPHILS # 5.1 10^3/uL (1.5-8.5); NEUTROPHILS % 54.1 % (36.0-66.0); PLATELET COUNT, AUTOMATED 445 10^3/uL (150-450); RED BLOOD COUNT 3.59 10^6/uL (4.00-5.40); WHITE BLOOD COUNT 9.4 10^3/uL (4.0-10.0)
[2021-05-05 14:08] LABS: ERYTHROCYTE SEDIMENTATION RATE 31 mm/hr (0-30)
[2021-05-05 15:21] LABS: ALBUMIN 3.9 GM/DL (3.2-5.2); BILIRUBIN,TOTAL 0.8 MG/DL (0.2-1.0); CALCIUM LEVEL 9.8 MG/DL (8.8-10.2); CHOLESTEROL RISK RATIO 2.781 (<5); CREATININE FOR GFR 1.27 MG/DL (0.55-1.30); GLOMERULAR FILTRATION RATE 43.3 (>39); POTASSIUM SERUM 5.1 MEQ/L (3.5-5.1); THYROID STIMULATING HORMONE 3.18 uIU/ML (0.358-3.740); TOTAL 25(OH) VITAMIN D 41.3 NG/ML (30.0-100.0); TOTAL PROTEIN 7.5 GM/DL (6.4-8.2)
== END ==
LOC: M SFHCADAM 10:11
PROVIDERS: ATTEND Physician Assistant Medical
DX: E78.5 Hyperlipidemia, unspecified (principal); I10 Essential (primary) hypertension; E03.9 Hypothyroidism, unspecified; Z79.899 Other long term (current) drug therapy

== ENCOUNTER → 2021-07-12 | Outpatient (CLI) | payer MEDICARE | LOC: M WHC 11:29 | PROVIDERS: ATTEND Physician Assistant Medical | DX: N18.31 Chronic kidney disease, stage 3a (principal) ==

== ENCOUNTER → 2021-08-10 | Outpatient (CLI) | payer MEDICARE | LOC: M RAD 09:53 | PROVIDERS: ATTEND Physician Assistant Medical | DX: R93.89 Abnormal findings on diagnostic imaging of other specified body structures (principal) ==

== ENCOUNTER → 2021-10-18 | Outpatient (CLI) | payer MEDICARE | LOC: M ADAMS 11:44 | PROVIDERS: ATTEND Physician Assistant Medical | DX: M51.36 Other intervertebral disc degeneration, lumbar region (principal); M16.12 Unilateral primary osteoarthritis, left hip ==

== ENCOUNTER → 2021-11-20 | Outpatient (CLI) | payer MEDICARE ==
[~2021-11-20] MED LIST changes: +ALEN70TA87 PO; -FOSA70TA PO
== END ==
LOC: M WHC 11:23
PROVIDERS: ATTEND Physician Assistant Medical
DX: E04.1 Nontoxic single thyroid nodule (principal)

== ENCOUNTER → 2021-11-21 | Outpatient (CLI) | payer MEDICARE | LOC: M WHC 14:14 | PROVIDERS: ATTEND Physician Assistant Medical | DX: Z12.31 Encounter for screening mammogram for malignant neoplasm of breast (principal) ==

== ENCOUNTER → 2022-01-29 | Outpatient (CLI) | payer MEDICARE, OTHER ==
[~2022-01-29] MED LIST changes: +XANA0.25 PO
== END ==
LOC: M LABSMTC 09:25
PROVIDERS: ATTEND Anesthesiology
DX: Z01.812 Encounter for preprocedural laboratory examination (principal); Z11.52 Encounter for screening for COVID-19

== ENCOUNTER 2022-02-02 12:08 | Day surgery (SDC) | payer MEDICARE, OTHER ==
[~2022-02-02] VITALS: Ht 162.6 cm; Wt 63.5 kg
[2022-02-02] MEDS ORDERED: fentaNYL 100 MCG/2 ML INJECTION As Ordered ONE (12:35)
[2022-02-02] MEDS ORDERED: ONDANSETRON 4MG 2ML VIAL As Ordered ONE (12:35)
[2022-02-02] MEDS ORDERED: KETOROLAC 60MG 2ML VIAL As Ordered ONE (12:35)
[2022-02-02] MEDS ORDERED: LIDOCAINE 2% 100MG/5ML SDV (FOR ANES.) As Ordered ONE (12:35)
[2022-02-02] MEDS ORDERED: MIDAZOLAM INJ 2MG/2ML VIAL (J2250 PER 1MG) As Ordered ONE (12:35)
[2022-02-02] MEDS ORDERED: propofoL 200 MG/20 ML VIAL As Ordered ONE (12:36)
[2022-02-02] MEDS ORDERED: ACETAMINOPHEN 1000MG 100ML IV BAG As Ordered ONE (12:40)
[2022-02-02 12:58] LABS: HEMATOCRIT 38.9 % (36.0-47.0); HEMOGLOBIN 12.6 g/dl (12.0-15.5); MEAN CORPUSCULAR HEMOGLOBIN 32.8 pg (27.0-33.0); MEAN CORPUSCULAR HGB CONC 32.4 g/dl (32.0-36.5); MEAN CORPUSCULAR VOLUME 101.3 fl (80.0-96.0); PLATELET COUNT, AUTOMATED 504 10^3/uL (150-450); RED BLOOD COUNT 3.84 10^6/uL (4.00-5.40); WHITE BLOOD COUNT 9.7 10^3/uL (4.0-10.0)
[2022-02-02] MEDS ORDERED: LR 1,000 ML IV SCH ×2 (13:05→14:55)
[2022-02-02] MEDS ORDERED: PHENYLEPHRINE 10MG/ML 1ML VIAL As Ordered ONE (14:39)
[2022-02-02] MEDS ORDERED: HYDROMORPHONE HCL 0.5 MG/ 0.5 ML SYRINGE (J1170 PER 1) IV PRN (14:55)
[2022-02-02] MEDS ORDERED: oxyCODONE 5MG TAB PO PRN (14:55)
[2022-02-02] MEDS ORDERED: ONDANSETRON 4MG 2ML VIAL IV PRN (14:55)
[2022-02-02] MEDS ORDERED: fentaNYL 100 MCG/2 ML INJECTION IV PRN (14:55)
[2022-02-02 16:23] VITALS: BP 165/78
== END 2022-02-02 16:40 | disposition home or self-care (01) ==
LOC: M SDC 12:08
PROVIDERS: ATTEND Specialist
DX: N81.3 Complete uterovaginal prolapse (principal); E03.9 Hypothyroidism, unspecified; K21.9 Gastro-esophageal reflux disease without esophagitis; M81.0 Age-related osteoporosis without current pathological fracture; Z79.82 Long term (current) use of aspirin; Z79.899 Other long term (current) drug therapy
CPT/HCPCS: 36415; 57410; 85027; 93005; J0131; J1100; J1885; J2250; J2370; J2405; J3010

== ENCOUNTER → 2022-03-14 | Outpatient (CLI) | payer MEDICARE, OTHER | LOC: M RAD 09:33 | PROVIDERS: ATTEND Specialist | DX: N85.00 Endometrial hyperplasia, unspecified (principal) ==

== ENCOUNTER → 2022-05-04 | Outpatient (REF) | payer MEDICARE | LOC: M LAB REF 19:43 | PROVIDERS: ATTEND Physician Assistant | DX: R30.0 Dysuria (principal) ==

== ENCOUNTER → 2022-05-07 | Outpatient (REF) | payer MEDICARE ==
[2022-05-07 16:08] LABS: ALBUMIN 3.5 G/DL (3.2-5.2); BILIRUBIN,TOTAL 0.8 MG/DL (0.3-1.2); CALCIUM LEVEL 9.5 MG/DL (8.3-10.6); CHOLESTEROL RISK RATIO 2.37 (<5); CREATININE FOR GFR 1.4 MG/DL (0.55-1.30); GLOMERULAR FILTRATION RATE 38.6 (>39); HDL CHOLESTEROL 61.6 MG/DL (>40); POTASSIUM SERUM 5.2 MMOL/L (3.5-5.1); THYROID STIMULATING HORMONE 2.304 uIU/ML (0.55-4.78); TOTAL 25(OH) VITAMIN D 54.1 NG/ML (20.0-100.0); TOTAL PROTEIN 7.1 G/DL (5.7-8.2)
== END ==
LOC: EEVIPCON 08:31 → M SFHCADAM 08:31
PROVIDERS: ATTEND Physician Assistant Medical
DX: I10 Essential (primary) hypertension (principal); E78.5 Hyperlipidemia, unspecified; N18.31 Chronic kidney disease, stage 3a; E03.9 Hypothyroidism, unspecified

== ENCOUNTER → 2022-05-16 | Outpatient (REF) | payer MEDICARE | LOC: M SFHCWAGY 17:12 | PROVIDERS: ATTEND Specialist | DX: N39.0 Urinary tract infection, site not specified (principal) ==

== ENCOUNTER → 2022-10-05 | Outpatient (REF) | payer MEDICARE ==
[~2022-10-05] MED LIST changes: +ASPI-655 PO; -ASPI1CHW3 PO; +FLUT50SP17; -FLUTISP; +MACR100C42 PO
== END ==
LOC: M SFHCADAM 17:15
PROVIDERS: ATTEND Physician Assistant
DX: R30.0 Dysuria (principal)

== ENCOUNTER → 2022-11-13 | Outpatient (REF) | payer MEDICARE ==
[2022-11-13 12:59] LABS: BASO # 0.1 10^3/uL (0.0-0.2); BASO % 1.9 % (0.0-1.0); EOS # 0.3 10^3/uL (0.0-0.5); EOS % 4.2 % (0.0-3.0); HEMATOCRIT 36.4 % (36.0-47.0); HEMOGLOBIN 11.7 g/dl (12.0-15.5); LYMPH # 2.4 10^3/uL (1.5-5.0); MEAN CORPUSCULAR HEMOGLOBIN 32.7 pg (27.0-33.0); MEAN CORPUSCULAR HGB CONC 32.1 g/dl (32.0-36.5); MEAN CORPUSCULAR VOLUME 101.7 fl (80.0-96.0); MONO # 0.8 10^3/uL (0.0-0.8); MONO % 11.4 % (2.0-8.0); NEUTROPHILS # 3.6 10^3/uL (1.5-8.5); NEUTROPHILS % 49.2 % (36.0-66.0); PLATELET COUNT, AUTOMATED 462 10^3/uL (150-450); RED BLOOD COUNT 3.58 10^6/uL (4.00-5.40); WHITE BLOOD COUNT 7.2 10^3/uL (4.0-10.0)
[2022-11-13 13:06] LABS: ALBUMIN 3.8 G/DL (3.2-5.2); BILIRUBIN,TOTAL 0.8 MG/DL (0.3-1.2); CALCIUM LEVEL 9.4 MG/DL (8.3-10.6); CHOLESTEROL RISK RATIO 2.5 (<5); CREATININE FOR GFR 1.36 MG/DL (0.55-1.30); GLOMERULAR FILTRATION RATE 39.9 (>39); HDL CHOLESTEROL 60.7 MG/DL (>40); LDL CHOLESTEROL 69.9 MG/DL (<100); NON-HDL-C 91.3 MG/DL; POTASSIUM SERUM 5.1 MMOL/L (3.5-5.1); THYROID STIMULATING HORMONE 2.557 uIU/ML (0.55-4.78); TOTAL 25(OH) VITAMIN D 47.1 NG/ML (20.0-100.0); TOTAL PROTEIN 7.2 G/DL (5.7-8.2)
== END ==
LOC: M SFHCADAM 08:28
PROVIDERS: ATTEND Physician Assistant Medical
DX: E78.5 Hyperlipidemia, unspecified (principal); I77.9 Disorder of arteries and arterioles, unspecified; N18.31 Chronic kidney disease, stage 3a; I50.32 Chronic diastolic (congestive) heart failure

== ENCOUNTER → 2022-11-21 | Outpatient (CLI) | payer MEDICARE | LOC: M RAD 12:05 | PROVIDERS: ATTEND Physician Assistant Medical | DX: E04.1 Nontoxic single thyroid nodule (principal) ==

== ENCOUNTER → 2022-11-27 | Outpatient (CLI) | payer MEDICARE | LOC: M WHC 09:54 | PROVIDERS: ATTEND Physician Assistant Medical | DX: Z12.31 Encounter for screening mammogram for malignant neoplasm of breast (principal); M81.0 Age-related osteoporosis without current pathological fracture ==

== ENCOUNTER → 2023-03-12 | Outpatient (CLI) | payer MEDICARE ==
[~2023-03-12] MED LIST changes: -FLUT50SP17; +FLUTISP
== END ==
LOC: M WHC 14:05
PROVIDERS: ATTEND Obstetrics & Gynecology Female Pelvic Medicine and Reconstructive Surgery
DX: Z53.9 Procedure and treatment not carried out, unspecified reason (principal)

== ENCOUNTER → 2023-04-15 | Outpatient (REF) | payer MEDICARE ==
[~2023-04-15] MED LIST changes: +ACET-897 PO; +B-12100010 PO; +CENT1TAB9 PO; +ESTR0.1C5; +FLAX1300 PO; +LOTE5DRO9; +PRES10CA2 PO
== END ==
LOC: M SFHCADAM 17:31
PROVIDERS: ATTEND Physician Assistant
DX: N39.0 Urinary tract infection, site not specified (principal)

== ENCOUNTER → 2023-04-25 | Outpatient (REF) | payer MEDICARE | LOC: M SFHCADAM 10:22 | PROVIDERS: ATTEND Physician Assistant | DX: N39.0 Urinary tract infection, site not specified (principal) ==

== ENCOUNTER → 2023-05-23 | Outpatient (REF) | payer MEDICARE ==
[2023-05-23 15:03] LABS: APPEARANCE, URINE CLOUDY (CLEAR); BACTERIA, URINE AUTO 2+ (NEGATIVE); BILIRUBIN, URINE AUTO NEGATIVE (NEGATIVE); BLOOD, URINE BLOOD NEGATIVE (NEGATIVE); COLOR, URINE YELLOW (YELLOW); GLUCOSE, URINE (UA) AUTO NEGATIVE (NEGATIVE); KETONE, URINE AUTO NEGATIVE (NEGATIVE); LEUKOCYTE ESTERASE, URINE AUTO 3+ (NEGATIVE); NITRITE, URINE AUTO NEGATIVE (NEGATIVE); PROTEIN, URINE AUTO 2+ mg/dL (NEGATIVE); RBC, URINE AUTO 4 /HPF (0-3); SPECIFIC GRAVITY URINE AUTO 1.006 (1.002-1.035); SQUAMOUS EPITHELIAL CELL UR AU 1 /HPF (0-6); UROBILINOGEN, URINE AUTO 0.2 mg/dL (0.0-2.0); WBC, URINE AUTO TNTC /HPF (0-3)
== END ==
LOC: M SFHCADAM 13:26
PROVIDERS: ATTEND Physician Assistant Medical
DX: R10.2 Pelvic and perineal pain (principal)

== ENCOUNTER → 2023-06-14 | Outpatient (CLI) | payer MEDICARE | LOC: M WHC 12:46 | PROVIDERS: ATTEND Physician Assistant Medical | DX: I77.9 Disorder of arteries and arterioles, unspecified (principal); I65.23 Occlusion and stenosis of bilateral carotid arteries ==

== ENCOUNTER → 2023-08-13 | Outpatient (REF) | payer MEDICARE ==
[2023-08-13 13:44] LABS: BASO # 0.2 10^3/uL (0.0-0.2); BASO % 2.2 % (0.0-1.0); EOS # 0.7 10^3/uL (0.0-0.5); HEMATOCRIT 37.2 % (36.0-47.0); HEMOGLOBIN 12.5 g/dl (12.0-15.5); LYMPH # 2.4 10^3/uL (1.5-5.0); LYMPH % 33.7 % (24.0-44.0); MEAN CORPUSCULAR HEMOGLOBIN 33.9 pg (27.0-33.0); MEAN CORPUSCULAR HGB CONC 33.6 g/dl (32.0-36.5); MEAN CORPUSCULAR VOLUME 100.8 fl (80.0-96.0); MONO # 0.9 10^3/uL (0.0-0.8); MONO % 12.4 % (2.0-8.0); NEUTROPHILS % 41.6 % (36.0-66.0); PLATELET COUNT, AUTOMATED 427 10^3/uL (150-450); RED BLOOD COUNT 3.69 10^6/uL (4.00-5.40); WHITE BLOOD COUNT 7.1 10^3/uL (4.0-10.0)
[2023-08-13 14:19] LABS: ALBUMIN 3.9 G/DL (3.2-5.2); ALKALINE PHOSPHATASE 48 U/L (46-116); ALT/SGPT 24 U/L (7.0-40); AST/SGOT 18 U/L (<34); BLOOD UREA NITROGEN 33 MG/DL (9-23); CALCIUM LEVEL 10.1 MG/DL (8.3-10.6); CARBON DIOXIDE LEVEL 25 MMOL/L (20-31); CHLORIDE LEVEL 107 MMOL/L (98-107); CHOLESTEROL LEVEL 159 MG/DL (<200); CHOLESTEROL RISK RATIO 2.72 (<5); GLOMERULAR FILTRATION RATE 38.5 (>32); GLUCOSE, FASTING 96 MG/DL (74-106); HDL CHOLESTEROL 58.4 MG/DL (>40); NON-HDL-C 100.6 MG/DL; POTASSIUM SERUM 5.8 MMOL/L (3.5-5.1); SODIUM LEVEL 141 MMOL/L (136-145); TOTAL PROTEIN 7.1 G/DL (5.7-8.2); TRIGLYCERIDES LEVEL 128 MG/DL (<150)
[2023-08-13 14:21] LABS: FREE T4 1.27 NG/DL (0.89-1.76); THYROID STIMULATING HORMONE 2.886 uIU/ML (0.55-4.78)
[2023-08-13 14:23] LABS: FOLATE > 24.0 NG/ML (>5.4); TOTAL 25(OH) VITAMIN D 48.2 NG/ML (20.0-100.0)
[2023-08-13 14:28] LABS: VITAMIN B12 LEVEL > 2000 PG/ML (211-911)
== END ==
LOC: M SFHCADAM 08:45
PROVIDERS: ATTEND Physician Assistant Medical
DX: I11.0 Hypertensive heart disease with heart failure (principal); E78.5 Hyperlipidemia, unspecified; I77.9 Disorder of arteries and arterioles, unspecified; M51.36 Other intervertebral disc degeneration, lumbar region; E03.9 Hypothyroidism, unspecified; K21.9 Gastro-esophageal reflux disease without esophagitis; N18.32 Chronic kidney disease, stage 3b

== ENCOUNTER → 2023-08-22 | Outpatient (REF) | payer MEDICARE ==
[2023-08-22 18:12] LABS: CALCIUM LEVEL 9.9 MG/DL (8.3-10.6); CREATININE FOR GFR 1.42 MG/DL (0.55-1.30); GLOMERULAR FILTRATION RATE 37.9 (>32); POTASSIUM SERUM 4.4 MMOL/L (3.5-5.1)
== END ==
LOC: M SFHCADAM 10:54
PROVIDERS: ATTEND Physician Assistant Medical
DX: I10 Essential (primary) hypertension (principal)

== ENCOUNTER → 2023-08-27 | Outpatient (CLI) | payer MEDICARE | LOC: M CARPUL 08:03 | PROVIDERS: ATTEND Physician Assistant Medical | DX: I50.32 Chronic diastolic (congestive) heart failure (principal) ==

== ENCOUNTER → 2023-12-04 | Outpatient (CLI) | payer MEDICARE, MEDICAID | LOC: M ADAMS 10:56 | PROVIDERS: ATTEND Physician Assistant Medical | DX: M85.88 Other specified disorders of bone density and structure, other site (principal); M51.369 Other intervertebral disc degeneration, lumbar region without mention of lumbar back pain or lower extremity pain ==

== ENCOUNTER 2023-12-06 21:18 | Emergency (ER) | payer MEDICARE, MEDICAID ==
[~2023-12-06] VITALS: Ht 157.5 cm; Wt 64.5 kg
[2023-12-06 21:48] LABS: BASO # 0.2 10^3/uL (0.0-0.2); BASO % 1.5 % (0.0-1.0); EOS # 0.8 10^3/uL (0.0-0.5); EOS % 7.6 % (0.0-3.0); HEMOGLOBIN 12.2 g/dl (12.0-15.5); LYMPH # 2.5 10^3/uL (1.5-5.0); LYMPH % 22.5 % (24.0-44.0); MEAN CORPUSCULAR HEMOGLOBIN 33.8 pg (27.0-33.0); MEAN CORPUSCULAR HGB CONC 33.9 g/dl (32.0-36.5); MEAN CORPUSCULAR VOLUME 99.7 fl (80.0-96.0); MONO # 1.4 10^3/uL (0.0-0.8); MONO % 13.1 % (2.0-8.0); NEUTROPHILS % 54.8 % (36.0-66.0); PLATELET COUNT, AUTOMATED 411 10^3/uL (150-450); RED BLOOD COUNT 3.61 10^6/uL (4.00-5.40)
[2023-12-06 22:19] LABS: CALCIUM LEVEL 9.6 MG/DL (8.3-10.6); CREATININE FOR GFR 1.46 MG/DL (0.55-1.30); GLOMERULAR FILTRATION RATE 36.7 (>32); POTASSIUM SERUM 4.3 MMOL/L (3.5-5.1)
[2023-12-06 22:22] LABS: THYROID STIMULATING HORMONE 8.716 uIU/ML (0.55-4.78)
[2023-12-06 22:47] LABS: FREE T4 1.34 NG/DL (0.89-1.76)
[2023-12-06] MEDS: MAALOX 30 ML SUSP *UDC PO ONE (23:08)
[2023-12-07 01:30] VITALS: BP 146/65; TEMP 96.8; O2SAT 97
== END 2023-12-07 01:36 | disposition home or self-care (01) ==
LOC: M ED 21:18 → EDBD 21:18 → M ED 12-07 01:36
DX: R55 Syncope and collapse (principal); K44.9 Diaphragmatic hernia without obstruction or gangrene; I10 Essential (primary) hypertension; E78.5 Hyperlipidemia, unspecified; E03.9 Hypothyroidism, unspecified; K21.9 Gastro-esophageal reflux disease without esophagitis; I25.10 Atherosclerotic heart disease of native coronary artery without angina pectoris; Z79.82 Long term (current) use of aspirin; Z79.899 Other long term (current) drug therapy

== ENCOUNTER → 2023-12-09 | Outpatient (CLI) | payer MEDICARE, MEDICAID | LOC: M WHC 10:03 | PROVIDERS: ATTEND Physician Assistant Medical | DX: Z12.31 Encounter for screening mammogram for malignant neoplasm of breast (principal) ==

== ENCOUNTER → 2023-12-25 | Outpatient (CLI) | payer MEDICARE, MEDICAID | LOC: M SLEEP 08:51 | PROVIDERS: ATTEND Physician Assistant Medical | DX: R55 Syncope and collapse (principal) ==

== ENCOUNTER → 2024-01-15 | Outpatient (CLI) | payer MEDICARE, MEDICAID | LOC: M PLAIMG 09:46 | PROVIDERS: ATTEND Physician Assistant Medical | DX: R55 Syncope and collapse (principal) ==

== ENCOUNTER → 2024-03-27 | Outpatient (REF) | payer MEDICARE, MEDICAID ==
[2024-03-27 18:30] LABS: BASO # 0.1 10^3/uL (0.0-0.2); BASO % 1.6 % (0.0-1.0); EOS # 0.5 10^3/uL (0.0-0.5); EOS % 5.9 % (0.0-3.0); HEMATOCRIT 39.8 % (36.0-47.0); HEMOGLOBIN 13.2 g/dl (12.0-15.5); LYMPH # 2.4 10^3/uL (1.5-5.0); LYMPH % 28.8 % (24.0-44.0); MEAN CORPUSCULAR HGB CONC 33.2 g/dl (32.0-36.5); MEAN CORPUSCULAR VOLUME 99.5 fl (80.0-96.0); MONO # 1.1 10^3/uL (0.0-0.8); MONO % 13.3 % (2.0-8.0); NEUTROPHILS # 4.2 10^3/uL (1.5-8.5); NEUTROPHILS % 50.2 % (36.0-66.0); PLATELET COUNT, AUTOMATED 418 10^3/uL (150-450); WHITE BLOOD COUNT 8.4 10^3/uL (4.0-10.0)
[2024-03-27 18:51] LABS: ALBUMIN 3.9 G/DL (3.2-5.2); BILIRUBIN,TOTAL 0.9 MG/DL (0.3-1.2); CALCIUM LEVEL 9.9 MG/DL (8.3-10.6); CREATININE FOR GFR 1.26 MG/DL (0.55-1.30); GLOMERULAR FILTRATION RATE 43.4 (>32); IMMUNOGLOBULIN A 193.9 MG/DL (40-350); IMMUNOGLOBULIN M 39.6 MG/DL (50-300); POTASSIUM SERUM 3.8 MMOL/L (3.5-5.1); TOTAL PROTEIN 7.5 G/DL (5.7-8.2)
[2024-03-29 04:57] LABS: T P ELECTROPHORESIS SO 7.4 g/dL (6.1-8.1)
[2024-03-30 14:07] LABS: FREE KAPPA LIGHT CHAINS SERUM 29.5 mg/L (3.3-19.4); FREE LAMBDA LIGHT CHAINS SERUM 43.7 mg/L (5.7-26.3); KAPPA/LAMBDA RATIO SERUM 0.68 (0.26-1.65)
[2024-03-31 07:17] LABS: ALBUMIN SPEP 4.3 g/dL (3.8-4.8); ALPHA-1-GLOBULINS SO 0.3 g/dL (0.2-0.3); BETA 2 GLOBULIN 0.4 g/dL (0.2-0.5); BETA-GLOBULIN SO 0.4 g/dL (0.4-0.6)
== END ==
LOC: M LABDRWAD 17:26
PROVIDERS: ATTEND Specialist
DX: D64.9 Anemia, unspecified (principal); N18.9 Chronic kidney disease, unspecified; E85.81 Light chain (AL) amyloidosis

== ENCOUNTER → 2024-04-24 | Outpatient (REF) | payer MEDICARE, MEDICAID ==
[~2024-04-24] MED LIST changes: +CHLO125TA
[2024-04-24 14:04] LABS: ALBUMIN 3.9 G/DL (3.2-5.2); BILIRUBIN,TOTAL 1.3 MG/DL (0.3-1.2); CALCIUM LEVEL 10.2 MG/DL (8.3-10.6); CHOLESTEROL RISK RATIO 2.28 (<5); CREATININE FOR GFR 1.23 MG/DL (0.55-1.30); GLOMERULAR FILTRATION RATE 44.6 (>32); HDL CHOLESTEROL 73.2 MG/DL (>40); LDL CHOLESTEROL 72.2 MG/DL (<100); NON-HDL-C 93.8 MG/DL; POTASSIUM SERUM 4.1 MMOL/L (3.5-5.1); TOTAL PROTEIN 7.4 G/DL (5.7-8.2)
[2024-04-24 14:06] LABS: THYROID STIMULATING HORMONE 2.395 uIU/ML (0.55-4.78)
[2024-04-24 14:07] LABS: TOTAL 25(OH) VITAMIN D 66.3 NG/ML (20.0-100.0)
[2024-04-24 14:08] LABS: BASO # 0.1 10^3/uL (0.0-0.2); BASO % 1.6 % (0.0-1.0); EOS # 0.4 10^3/uL (0.0-0.5); EOS % 5.6 % (0.0-3.0); HEMATOCRIT 39.8 % (36.0-47.0); HEMOGLOBIN 13.3 g/dl (12.0-15.5); LYMPH # 2.2 10^3/uL (1.5-5.0); LYMPH % 29.3 % (24.0-44.0); MEAN CORPUSCULAR HEMOGLOBIN 32.6 pg (27.0-33.0); MEAN CORPUSCULAR HGB CONC 33.4 g/dl (32.0-36.5); MEAN CORPUSCULAR VOLUME 97.5 fl (80.0-96.0); MONO # 0.9 10^3/uL (0.0-0.8); MONO % 11.5 % (2.0-8.0); NEUTROPHILS # 3.9 10^3/uL (1.5-8.5); NEUTROPHILS % 51.6 % (36.0-66.0); PLATELET COUNT, AUTOMATED 435 10^3/uL (150-450); RED BLOOD COUNT 4.08 10^6/uL (4.00-5.40); WHITE BLOOD COUNT 7.5 10^3/uL (4.0-10.0)
== END ==
LOC: M SFHCADAM 08:54
PROVIDERS: ATTEND Physician Assistant Medical
DX: I12.9 Hypertensive chronic kidney disease with stage 1 through stage 4 chronic kidney disease, or unspecified chronic kidney disease (principal); E78.5 Hyperlipidemia, unspecified; E03.9 Hypothyroidism, unspecified; K21.9 Gastro-esophageal reflux disease without esophagitis; N18.32 Chronic kidney disease, stage 3b

== ENCOUNTER → 2024-04-29 | Outpatient (CLI) | payer MEDICARE, MEDICAID | LOC: M WHC 10:09 | PROVIDERS: ATTEND Physician Assistant Medical | DX: Z12.31 Encounter for screening mammogram for malignant neoplasm of breast (principal); Z53.9 Procedure and treatment not carried out, unspecified reason ==

== ENCOUNTER → 2024-04-29 | Outpatient (CLI) | payer MEDICARE, MEDICAID ==
[2024-04-29 14:08] LABS: CREATININE, URINE 107.5 MG/DL; MAU/CREAT RATIO 198.1 MCG/MG (0.0-30.0)
== END ==
LOC: M ADAMS 10:14
PROVIDERS: ATTEND Physician Assistant Medical
DX: M54.2 Cervicalgia (principal); I10 Essential (primary) hypertension; E78.5 Hyperlipidemia, unspecified; E03.9 Hypothyroidism, unspecified; K21.9 Gastro-esophageal reflux disease without esophagitis; M18.32 Unilateral post-traumatic osteoarthritis of first carpometacarpal joint, left hand; M47.812 Spondylosis without myelopathy or radiculopathy, cervical region

== ENCOUNTER → 2024-10-29 | Outpatient (CLI) | payer MEDICARE, MEDICAID ==
[~2024-10-29] MED LIST changes: +AMLO-751 PO; -AMLO10TA PO; -ASPI-655 PO; +ASPI-737 PO; +METO1TAB32; +POTA-298; +VALA-3
[2024-10-29 17:12] LABS: BASO # 0.2 10^3/uL (0.0-0.2); BASO % 1.7 % (0.0-1.0); EOS # 3.4 10^3/uL (0.0-0.5); LYMPH # 2.2 10^3/uL (1.5-5.0); LYMPH % 17.6 % (24.0-44.0); MONO # 1.3 10^3/uL (0.0-0.8); MONO % 10.5 % (2.0-8.0); NEUTROPHILS # 5.5 10^3/uL (1.5-8.5); NEUTROPHILS % 43.3 % (36.0-66.0); PLATELET COUNT, AUTOMATED 374 10^3/uL (150-450)
[2024-10-29 17:15] LABS: EOS % 26.5 % (0.0-3.0)
[2024-10-29 17:45] LABS: ALT/SGPT 20.0 U/L (7.0-40); AST/SGOT 27.0 U/L (<34); CALCIUM LEVEL 9.7 MG/DL (8.3-10.6); CARBON DIOXIDE LEVEL 28.0 MMOL/L (20-31); CHLORIDE LEVEL 100.0 MMOL/L (98-107); CREATININE FOR GFR 1.24 MG/DL (0.55-1.30); GLOMERULAR FILTRATION RATE 43.7 (>32); POTASSIUM SERUM 4.8 MMOL/L (3.5-5.1); SODIUM LEVEL 138.0 MMOL/L (136-145)
[2024-11-01 01:57] LABS: T P ELECTROPHORESIS SO 6.8 g/dL (6.1-8.1)
[2024-11-03 15:01] LABS: FREE KAPPA LIGHT CHAINS SERUM 32.3 mg/L (3.3-19.4); FREE LAMBDA LIGHT CHAINS SERUM 45.5 mg/L (5.7-26.3); KAPPA/LAMBDA RATIO SERUM 0.71 (0.26-1.65)
[2024-11-04 08:12] LABS: ALBUMIN SPEP 3.8 g/dL (3.8-4.8); ALPHA-1-GLOBULINS SO 0.3 g/dL (0.2-0.3); ALPHA-2-GLOBULINS SO 1.0 g/dL (0.5-0.9); BETA 2 GLOBULIN 0.3 g/dL (0.2-0.5); BETA-GLOBULIN SO 0.4 g/dL (0.4-0.6); GAMMA GLOBULINS SO 1.0 g/dL (0.8-1.7)
== END ==
LOC: M LABDRWAD 11:39
PROVIDERS: ATTEND Nurse Practitioner
DX: D53.9 Nutritional anemia, unspecified (principal)

== ENCOUNTER → 2024-12-10 | Outpatient (CLI) | payer MEDICARE, MEDICAID | LOC: M WHC 10:46 | PROVIDERS: ATTEND Physician Assistant Medical | DX: Z12.31 Encounter for screening mammogram for malignant neoplasm of breast (principal); M85.89 Other specified disorders of bone density and structure, multiple sites; R92.313 Mammographic fatty tissue density, bilateral breasts ==

== ENCOUNTER → 2025-02-09 | Outpatient (CLI) | payer MEDICARE, MEDICAID ==
[~2025-02-09] MED LIST changes: +METHACHOLINE KIT (6 VIAL.NEB PREMIX) INH ONE; +SULF-7 PO; -SULF1TAB23 PO; +[UNRECOGNIZED DRUG - CODE] PO; -[UNRECOGNIZED DRUG - CODE] PO
== END ==
LOC: M CARPUL 12:03
PROVIDERS: ATTEND Internal Medicine Pulmonary Disease
DX: R06.02 Shortness of breath (principal)
CPT/HCPCS: 94070; 95070; J7674